=== PATIENT | male | born 1955 | race Caucasian/White ===

== ENCOUNTER 2024-07-04 14:16 | Emergency (ER) | payer MEDICARE, OTHER ==
[2024-07-04] VITALS (9 sets, daily range): BP systolic 102–116; BP diastolic 61–78
[~2024-07-04] VITALS: Ht 180.3 cm; Wt 99.7 kg
[2024-07-04] MEDS ORDERED: ONDANSETRON 4 MG/TAB ODT PO ONE (14:55)
[2024-07-04] MEDS ORDERED: MORPHINE SULFATE 4 MG/ML VIAL IV ONE (14:55)
[2024-07-04 15:19] LABS: BASO% 0.4 % (0-3); EOS% 5.2 % (0-8); HEMOGLOBIN 13.2 g/dl (14.0-18.0); IMMATURE GRANULOCYTES 0.2 % (0.0-5.0); LYMPH% 19.9 % (15-41); MEAN CELL VOLUME 87.8 fL CALC (80.0-100.0); MEAN CORPUSCULAR HGB 29.7 pG CALC (26.0-32.0); MEAN CORPUSCULAR HGB CONC 33.8 g/dL CAL (32.0-36.0); MONO% 10.4 % (2-13); NEUT# 3.43 thou/uL (1.82-7.42); NEUT% 63.9 % (42-76); RED BLOOD COUNT 4.44 mill/uL (4.70-6.10)
[2024-07-04 15:37] LABS: ALBUMIN 3.9 g/dL (3.2-5.0); BILIRUBIN, TOTAL 0.9 mg/dL (0.2-1.3); CREATININE 0.9 mg/dL (0.7-1.3); POTASSIUM 4.1 mmol/l (3.5-5.1); TOTAL PROTEIN 6.6 g/dL (6.3-8.2)
[2024-07-04] MEDS ORDERED: EC-NAPROXEN500 MG PO (18:40)
== END 2024-07-04 18:57 | disposition home or self-care (01) ==
LOC: ED 14:16
PROVIDERS: Family Medicine
DX: M25.552 Pain in left hip (principal); G20.A1 Parkinson's disease without dyskinesia, without mention of fluctuations

== ENCOUNTER 2024-07-23 21:12 | Observation (INO) | payer MEDICARE, OTHER ==
[2024-07-23] VITALS (11 sets, daily range): BP systolic 111–158; BP diastolic 61–102
[~2024-07-23] VITALS: Ht 27.9 cm; Wt 103.0 kg
[~2024-07-23 21:12] MED LIST: EC-NAPROXEN500 MG PO
[2024-07-23] MEDS ORDERED: EPINEPHrine HCL 1 MG/ML AMP SC ONE (21:20)
[2024-07-23] MEDS ORDERED: DiphenhydrAMINE HCL 50 MG/ML SDV IM ONE (21:20)
[2024-07-23] MEDS ORDERED: TRANEXAMIC ACID 100 MG/ML 10ML IV ONE (21:50)
[2024-07-23] MEDS ORDERED: EPINEPHrine HCL 1 MG/ML AMP IM ONE (22:35)
[2024-07-23 22:48] LABS: BASO% 0.6 % (0-3); EOS% 4.5 % (0-8); HEMATOCRIT 41.1 % (39.0-50.0); HEMOGLOBIN 13.7 g/dl (14.0-18.0); IMMATURE GRANULOCYTES 0.1 % (0.0-5.0); LYMPH% 23.7 % (15-41); MEAN CELL VOLUME 88.4 fL CALC (80.0-100.0); MEAN CORPUSCULAR HGB 29.5 pG CALC (26.0-32.0); MEAN CORPUSCULAR HGB CONC 33.3 g/dL CAL (32.0-36.0); MONO% 11.1 % (2-13); NEUT# 4.01 thou/uL (1.82-7.42); RED BLOOD COUNT 4.65 mill/uL (4.70-6.10); RED CELL DISTRI WIDTH 13.1 % (11.5-15.5)
[2024-07-23 22:53] LABS: ALBUMIN 4.4 g/dL (3.2-5.0); BILIRUBIN, TOTAL 0.7 mg/dL (0.2-1.3); POTASSIUM 4.1 mmol/l (3.5-5.1); TOTAL PROTEIN 7.3 g/dL (6.3-8.2)
[2024-07-23] MEDS ORDERED: MAGNESIUM HYDROXIDE 30 ML UDC PO PRN (23:10)
[2024-07-23] MEDS ORDERED: ACETAMINOPHEN 325 MG/TAB PO PRN (23:10)
[2024-07-23] MEDS ORDERED: SODIUM CHLORIDE 0.9% 1,000 ML IV PRN (23:10)
[2024-07-23] MEDS ORDERED: GABAPENTIN100 MG PO (23:54)
[2024-07-23] MEDS ORDERED: CARB/LEVO SR PO (23:54)
[2024-07-24] VITALS (42 sets, daily range): BP systolic 122–169; BP diastolic 71–104
[2024-07-24] MEDS ORDERED: PEPCID20 MG PO (09:57)
[2024-07-24] MEDS ORDERED: PREDNISONE10 MG PO (09:57)
[2024-07-24] MEDS ORDERED: LORATADINE10 M3 PO (09:58)
== END 2024-07-24 11:20 | disposition home or self-care (01) ==
LOC: ED 21:12 → ED-I 22:02 → ED 22:02 → ED-I 22:57 → ED 23:07 → ED-I 23:08
PROVIDERS: Family Medicine; ADMIT Internal Medicine; ATTEND Internal Medicine
DX: T78.3XXA Angioneurotic edema, initial encounter (principal); G20.A1 Parkinson's disease without dyskinesia, without mention of fluctuations; Z91.038 Other insect allergy status
CPT/HCPCS: J1100; J1200